=== PATIENT | female | born 1945 | race Caucasian/White ===

== ENCOUNTER → 2021-02-10 10:08 | Outpatient (CLI) | payer MEDICARE, OTHER, SELFPAY ==
[2021-02-10 12:04] LABS: COVID19 -Nasal RAPID Negative (Negative)
== END ==
PROVIDERS: PCP Nurse Practitioner; Visit Provider Physician Assistant
DX: Z01.812 Encounter for preprocedural laboratory examination (principal); Z20.822 Contact with and (suspected) exposure to COVID-19
CPT/HCPCS: 87635; C9803

== ENCOUNTER 2021-02-13 08:53 | Observation (INO) | payer MEDICARE, OTHER, SELFPAY ==
[2021-02-06 09:43] VITALS: BMI 30.9
[2021-02-12] VITALS (14 sets, daily range): BP systolic 74–132; BP diastolic 46–78; PULSE 69–88; RESP 13–17; TEMP 35.8–37.3; O2SAT 89–100; BMI 30.9
--- NOTE | 2021-02-12 | DI.RAD.S_ITS ---
PROCEDURE: XR PELVIS 1-2V INDICATIONS: POST OPERATIVE RIGHT HIP TECHNIQUE: 1 view of the lower pelvis acquired. COMPARISON: None. FINDINGS: Bones: Patient is status post right hip arthroplasty, with hardware components in expected positions. The hip joint appears congruent. The visualized bony structures appear intact. The left hip has mild degenerative changes. Soft tissues: Overlying postoperative changes are noted. No suspicious soft tissue densities. IMPRESSION: Postoperative changes of total right hip replacement without complication. Dictated by: Gene Nichols M.D. on 02/12/2021 at 11:00 Approved by: Gene Nichols M.D. on 02/12/2021 at 11:01
[2021-02-12] MEDS: ACETAMINOPHEN 325 MG TABLET 975 MG PO (07:29)
[2021-02-12] MEDS: GABAPENTIN 300 MG CAPSULE PO (07:29)
[2021-02-12] MEDS: CELECOXIB 200 MG CAPSULE 400 MG PO (07:29)
[2021-02-12] MEDS: LACTATED RINGERS 1,000 ML 42 ML IV ×2 (07:30→09:25)
--- NOTE | 2021-02-12 07:38 | DI.RAD.S_ITS ---
PROCEDURE: XR HIP W PEL IF DONE RT 2V INDICATIONS: interoperative right anterior hip TECHNIQUE: 2 view(s) of the hip acquired. COMPARISON: None. FINDINGS: Improved operative images of right hip arthroplasty is present. Arthroplasty is in good anatomic position. IMPRESSION: Intraoperative hip arthroplasty. Dictated by: Debora Gutierrez M.D. on 02/12/2021 at 10:20 Approved by: Debora Gutierrez M.D. on 02/12/2021 at 10:21
--- NOTE | 2021-02-12 08:08 | PM.PREOP ---
Pre-operative Note COVID-19 COVID-19 status: Negative Result date/Date tested (Pos, Neg/Pending): 02/10/21 Interval Note History & Physical reviewed/Exam performed by Physician: Yes Changes to H&P: No H&P completed within 30 days and has changed as indicated here:: Plan for R anterior JULIA
[2021-02-12] MEDS: CEFAZOLIN 1 GM VIAL 2 GM IV ×3 (08:19→23:55)
[2021-02-12] MEDS: TRANEXAMIC ACID 1,000 MG VIAL 2000 MG INJ ×2 (08:24→09:59)
--- NOTE | 2021-02-12 08:35 | SUR.OPER ---
Supine on padded [place] table with bilateral legs secured in padded positioning boots and suspended in positioning spars, bilateral feet/ankles wrapped in cast padding and coban wrap, operative leg in traction per surgeon. Head on one pillow. Arm on non-operative side secured on padded armboard <90 degrees abduction. Arm on operative side padded and resting across chest then secured with tape over sheet. Padded perineal post in place per surgeon.
[2021-02-12] MEDS: KETOROLAC 30 MG/ML VIAL IV (08:45)
[2021-02-12] MEDS: ROPIVACAINE 0.5% PF 5 MG/ML 20ML VIAL 10 ML INJ (08:47)
[2021-02-12] MEDS: MORPHINE 4 MG/ML INJ INJ (08:47)
[2021-02-12] MEDS: POVIDONE-IODINE SPONGE STICKS 1 APPLIC TOP (09:58)
--- NOTE | 2021-02-12 10:05 | P.OP_ITS ---
Operative Date/Time/Diagnoses Date of procedure: 02/12/21 Time of procedure: 10:05 Pre-op diagnosis: right hip OA Post-op diagnosis: same Procedure & Clinicians Procedure: right anterior JULIA Same procedure as scheduled: Yes Indications: right hip OA resistant to further conservative measures Surgeon: Juan Carlos Romano Financial Operations Consultant: Joni Melo Anesthesia Type: General and Spinal Operative Notes Findings: advacned OA of the right hip, large head neck junction osteophytes Closure Type: primary Specimen(s): none sent Prosthetic devices, grafts, tissues, transplants, or devices: Tam and Nephew 48 mm 3 hole R3 cup 48 mm x 32 mm neutral offset liner 1 X 25 mm screw 1 X 15 mm screw Size 6 standard offset anthology stem 32- 3 Oxinium femoral head Estimated Blood Loss (mL): 300 Procedure in detail: patient was met in the preop holding area where the site and side of surgery were marked by . Informed consent had been reviewed and signed in clinic was also reviewed the preoperative holding area all last minute questions were answered. Patient was then brought back in the operating room she received a spinal anesthetic she was induced under general anesthesia and transferred onto the [place] table. Bilateral feet were placed in well-padded [place] table boots. The right lower extremity was then prepped and draped in normal sterile fashion. A surgical time-out was performed verifying the site and side surgery as well as the name of the patient. A 7 cm long incision was made in the skin starting approximately 2 cm distal and 1 cm lateral to the ASIS aiming towards the fibular head 1 skin incision was made electrocautery dissection was carried down to the level of the tensor fascia. The tensor fascia was then incised using a new 10. Blade and a Allis clamp was placed on the medial leaflet. The tensor muscle itself was then reflected laterally in a Cobra was placed and over the superior aspect of the femoral neck. A Meyerding was then placed over the lateral aspect of the rectus femoris and retracted medially. This gave us good exposure to the descending branch of the femoral circumflex vessels. These were coagulated using electrocautery. A 2nd Cobra retractor was then placed into the inferior aspect of the femoral neck. A bent Hohmann was then placed over the anterior aspect of the acetabulum to give us good capsular exposure. Inverted T-shaped capsulotomy was then performed the superior and inferior leaflets were tagged with a FiberWire suture. Cobra retractors then placed intracapsularly this gave us good exposure the femoral neck. A reciprocating saw was then used to make a femoral neck cut based off of our preoperative template standing film length. Head was then removed using a corkscrew. The head fragment at this point and was able to be removed with a rongeur. Retractor was then replaced give us acetabular exposure. Pulvinar was then removed using electrocautery and suction. The remnant of the labrum which was quite large and calcified was removed using a Angie blade. I began reaming with a 42 mm Reamer to medialized and get through the sclerotic bone I then began upsizing by 2s once I got to 46 mm Reamer up brought in fluoroscopy to guide final reaming under fluoroscopic guidance. After 46 mm Reamer I then selected a 47 mm Reamer which had good fit and fill and touch reamed with a 48 mm Reamer a 48 mm 3 hole R3 cup was then malleted into place under fluoroscopic guidance using a straight impactor. Two screws were then drilled for 1.5 mm in length other 15 mm in length these were then placed. A neutral offset 40 mm x 32 mm polyethylene was then packed into place make sure the tabs were flush with the acetabular rim. Once this was completed turned our attention to the femoral side. A femoral elevator hook was placed into the posterior aspect of the femur the femur was then externally rotated to 120? extended to the floor and adducted. A bent Hohmann was placed over the superior aspect of the superior leaflet of the capsulotomy and the capsule was then further released off the inner shoulder greater trochanter with to produce a soft spot. A large single prong retractors then placed over the tip of the greater trochanter to give us exposure. A Damon retractors then placed over the medial calcar to give us exposure the femoral neck. A canal finer was then used followed by a chili pepper broach followed by size 1 broach upsizing by 1 until I got to size 4. This point trialed with a standard offset neck with 32+ 0 head and this was stable to maximal external rotation as well as external rotation 90? extension of floor. Fluoroscopic images were obtained which show that we are 1-2 mm long on the operative side however when took imaging of the stem within the canal the femur the was in varus and undersized. I then dislocated the hip removed the trial broach and began to lateralize my broaches as well as upsize. We ended with a size 6 broach. This corrected our varus malalignment and had better canal fit and fill. I then trialed with a 32- 3 head and standard offset neck. This had good stability and good leg lengths. The hip was then dislocated a final time. a size 6 anthology standard offset stem was then malleted into place and a 32- 3 Oxinium head was then malleted onto the trunnion the hip was reduced a final time Betadine solution was then placed in the wound final fluoroscopic images were obtained pulse lavage was then used to thoroughly irrigate the Betadine solution under the wound local anesthetic was infiltrated in the periarticular soft tissues. The capsulotomy was repaired using running Ethibond suture in the FiberWire tag sutures were removed. The tensor fascia was then closed using a running locking 1. Vicryl followed by 2 Vicryl in the subcutaneous layer followed by running 3-0 Stratafix in subcuticular layer Dermabond and Aquacel dressing. Complications: none Post-operative Condition: stable Disposition: PACU Plan for aftercare: WBAT RLE, 24 horus post-op abx, ASA 81mg BId for 6 weeks for DVT prophylaxis
[2021-02-12] MEDS: LACTATED RINGERS 1,000 ML 120 ML IV (10:55)
[2021-02-12] MEDS: LACTATED RINGERS 1,000 ML 100 ML IV (12:09)
[2021-02-12] MEDS: IBUPROFEN 400 MG TABLET PO ×3 (13:02→20:17)
--- NOTE | 2021-02-12 14:20 | PT.IIE ---
Current Diagnoses Unilateral primary osteoarthritis, right hip (02/12/21) Surgery Performed Operation Date: 02/12/21 07:45 Actual Procedures p Total Hip Arthroplasty/Anterior Approach(Right) - Juan Carlos Romano MD Surgical History (Last Updated 02/06/21 @ 10:16 by Adele Walden, RN) History of cardiac cath Hx laparoscopic cholecystectomy (09/1989) Hx of colonoscopy (2007) Hx of heart artery stent (1995) Hx of left breast biopsy (07/2018) Hx of tonsillectomy Medical History (Last Updated 02/06/21 @ 10:16 by Adele Walden RN) Anxiety Arthritis CAD (coronary artery disease) Edema Hearing impairment Heart murmur (09/16/20) HLD (hyperlipidemia) HTN (hypertension) Lower back pain Osteoarthritis Plantar fasciitis Sciatica Physical Therapy Inpatient Evaluation/Re-Eval M1 PT/OT-IP Prior Functional Status Start: 02/12/21 15:34 Freq: NEEDED Status: Active Protocol: Document 02/12/21 14:20 AB (Rec: 02/12/21 15:59 AB [email or web address]) Medical Review Prior Functional Status Medical History Reviewed Yes Communication able to make needs known Mobility and Gait pt stated that she is independent with all mobilities and ambulation without AD Social History Household Members none Living Arrangements House Number of Floors (Floors) One Floor Number of Stairs To Enter/Railing? ramp to enter Home Environment Standard Height Toilet,Walk in Shower,Built-In Shower Seat, Ramp Home Equipment Front Wheel Walker,Straight Cane Additional Social History Comment pt stated that her son and [id number] lives next door and can assist as needed but cannot stay with her M2 PT-IP Current Condition Start: 02/12/21 15:34 Freq: NEEDED Status: Active Protocol: Document 02/12/21 14:20 AB (Rec: 02/12/21 15:59 AB [email or web address]) Physical Therapy Current Condition Current Condition Evaluation Date 02/12/21 Treatment Diagnosis s/p R JULIA anterior approach; difficulty in walking Onset Date 02/12/21 Precautions Anterior Hip Precautions No Hip Extension,No Hip External Rotation Weight Bearing Status Weight Bearing Status Weight Bear as Tolerated Allowed Weight Bearing Amount (enter % RLE WBAT or #) (%) M3 PT-IP Subjective Start: 02/12/21 15:34 Freq: NEEDED Status: Active Protocol: Document 02/12/21 14:20 AB (Rec: 02/12/21 15:59 AB [id number]) Subjective Physical Therapy Visit Type Type Initial Evaluation Visit Start Time 14:20 Visit Stop Time 15:05 Total Visit Minutes 45 Number of WASTE DISPOSAL LEAKAGE TESTER Visits 0 Physical Therapy Visit Comments Patient Comments pt is agreeable to do PT Therapy Pain Assessment Pain Present Pain Present Denied Pain M4 PT-IP Mobility and Gait Start: 02/12/21 15:34 Freq: NEEDED Status: Active Protocol: Document 02/12/21 14:20 AB (Rec: 02/12/21 15:59 [email or web address]) PT-Bed Mobility Assessment Supine to Sit Supine to Sit Standby Assistance Sit to Supine Sit to Supine Standby Assistance PT-Transfer Assessment Sit to and From Stand Sit to and from Stand Moderate Assistance,Maximum Assistance,1 Person Assistance ,Use of Upper Extremities Equipment Transfer Assistive Device Gait Belt,Front Wheeled Walker Orthotic/Prosthetic Devices or Brace: No Transfers Transfer Destination Bed,Bedside Commode Transfer Technique Stand Step Pivot Transfer Ability Level of Assist Moderate Assistance,Maximum Assistance,1 Person Assistance ,Use of Upper Extremities Comments Mobility Comments pt educated regarding anterior hip precautions. BP in supine: 92/49. completed supine to sit SBA. pt was able to sit on EOB CGA. (+) nausea with emesis. BP checked in sittin/56. informed nurse regarding nausea and pt medicated. pt requesting to use the toilet. bedside commode positioned next to pt. completed sit to stand mod to max A and max cues with increase posterior trunk lean and cued to use FWW for support. completed step transfer to bedside commode mod to max A and max cues for steadiness. BP sitting on commode after transfers: 131/ 65. pt with difficulty following directions and has delayed motor control requiring assist to stabilize LE and balance. completed sit to stand from the bedside commode max A and cues and was able to take a few steps to get into the bed using fWW max A and cues. completed sit to supine SBA. assisted in positioning in bed. call light and table placed within reach. BP in supine after PT session: 118/63. pt has FWW in room but has rubber back legs and informed pt regarding safety and to get skids/tennis balls to be put on back legs and pt understood . Gait Assessment Gait Gait Assistance Required: Maximum Assistance,1 Person Assist Distance (Feet) 2 Able to Maintain Weight Bearing Status Yes During Gait Assistive Devices Assistive Device Gait Belt,Front Wheeled Walker Orthotic/Prosthetic Devices or Brace: No Gait Deviations General Gait Pattern Antalgic,Decreased Stride Length,Decreased Feet Clearance Factors Limiting Gait Function Factors Limiting Gait Function Decreased Activity Tolerance, Decreased Strength,Difficulty Following Directions, Incoordination,Limited Range of Motion,Poor Balance,Poor Safety Awareness Comments Gait Comments pls refer to mobility section for details PT-Balance Assessment Sitting Balance and Reactions Static Sitting Balance Ability Good Dynamic Sitting Balance Ability Good Standing Balance and Reactions Static Standing Balance Ability Poor Dynamic Standing Balance Ability Poor Device Used FWW M5 PT-IP Objective Assessments Start: 02/12/21 15:34 Freq: NEEDED Status: Active Protocol: Document 02/12/21 14:20 AB (Rec: 02/12/21 15:59 [email or web address]) Orientation Orientation/Cognition Level of Alertness Alert Orientation Name,Place,Situation Language Function Ability Hard of Hearing Safety Awareness Decreased Safety Awareness Memory Description Short Term Impaired Gross Range of Motion Lower Extremity ROM Assessment Within Functional Limits Strength Lower Extremity Strength Assessment Right Impaired Hip 3+/5 Knee 4-/5 Coordination Assessment Gross Coordination Gross Coordination WNL Sensation Assessment Comments Sensation Comments chronic LE numbness due to back issue per pt Muscle Tone Muscle Tone WNL Yes M6 PT-IP Treatment Start: 02/12/21 15:34 Freq: NEEDED Status: Active Protocol: Document 02/12/21 14:20 AB (Rec: 02/12/21 15:59 [email or web address]) Physical Therapy Treatment Education Education Provided Precautions,Weight Bearing Status,Post-Op Packet,Safety M7 PT-IP Assessment and Plan Start: 02/12/21 15:34 Freq: NEEDED Status: Active Protocol: Document 02/12/21 14:20 AB (Rec: 02/12/21 15:59 [email or web address]) PT Summary Assessment and Plan Potential Rehabilitation Potential Good Status of Condition at Evaluation Evolving Summary Impairments Pain,ROM,Strength,Balance, Coordination,Sensation,Tone, Cognition,Bed Mobility, Transfers,Gait,Activity Tolerance Assessment Summary pt s/p R JULIA anterior approach POD 0. Pt requiring mod to max A with mobility using FWW and unable to tolerate much activity with c/o nausea and ( +) emesis. pt still has decrease motor control on trunk/LE requiring max A for mobility and safety. Pt just had surgery earlier today and will likely progress during hospital stay. will continue to assess progress and will conduct caregiver training when appropriate. Called pt's son per pt's permission to contact son to schedule training but call was unsuccessful. Goals Bed Mobility Goal Independent Transfer Goal Standby Assistance,Front Wheeled Walker Gait Goal Standby Assistance,Front Wheel Walker Gait Distance 150 Days to Meet Goals 5 Frequency of Treatment Frequency Of Treatment Twice a Day Treatment Plan Physical Therapy Treatment Plan Bed Mobility Training,Transfer Training,Gait Training, Therapeutic Exercise,Balance Retraining,Post Op Education, Discharge Planning,Hot or Cold Pack,Neuromuscular Re-ed, Coordination Retraining,Manual Therapy Precautions Anterior Hip Precautions No Hip Extension,No Hip External Rotation Recommendations To Nursing Amount of Assist Needed 2 Person Assist Discharge Recommendations PT Discharge Recommendations Home with 29/03 Assist Available,Home Health Transportation Needs at Discharge Private Vehicle
[2021-02-12] MEDS: ONDANSETRON 4 MG/2 ML INJ IV (14:44)
[2021-02-12] MEDS: ACETAMINOPHEN 325 MG TABLET 650 MG PO ×2 (15:04→20:18)
[2021-02-12] MEDS: ATORVASTATIN 20 MG TABLET 40 MG PO (16:10)
--- NOTE | 2021-02-12 16:54 | PT-IP ANOTE ---
pt's son called back and caregiver training set up tomorrow 02/13 at 10 am. informed pt and is aware of caregiver training as well.
[2021-02-12] MEDS: ASPIRIN EC 81 MG TABLET PO (20:17)
[2021-02-12] MEDS: DOCUSATE 100 MG CAPSULE PO (20:17)
[2021-02-13] MEDS: ONDANSETRON 4 MG ODT PO (00:05)
[2021-02-13 00:23] VITALS: O2SAT 86
[2021-02-13 00:49] VITALS: O2SAT 98
[2021-02-13] MEDS: IBUPROFEN 400 MG TABLET PO ×3 (00:49→09:00)
--- NOTE | 2021-02-13 01:36 | PC.NURSE ---
patient is alert and oriented. Breath sounds CTA but RA sat only 86% so placed on oxygen at 2L/min and sat improved to 98% so decreased to 1L/min for overnight. HRR. Complained of slight nausea which she states she has had most of the day; medicated with Zofran ODT. BT hypoactive; denies flatus. Has voided only 135cc since return from surgery but bladder scan at shift change only 318cc and patient denies any bladder discomfort. Is able to move herself in bed. Has been out of bed with walker and 1 assist but is weak in her right leg. Reports chronic numbness in right LE and left heel which is unchanged. Able to lift right leg off bed but has limited ROM. Aquacel dressing intact to right anterior hip with small spot of shadow drainage. Denies pain. Wearing bilateral calf SCD's. Fall risk score is moderate; bed alarm is activated.
[2021-02-13 03:43] VITALS: BP 103/59; PULSE 92; RESP 18; TEMP 36.1; O2SAT 97
[2021-02-13 05:45] VITALS: O2SAT 97
[2021-02-13 05:54] LABS: Hematocrit 27.7 % (36-46); Hemoglobin 9.4 g/dL (12.0-16.0)
--- NOTE | 2021-02-13 07:27 | P.PN_ITS ---
Subjective Subjective Date Patient Seen: 02/13/21 Time Patient Seen: 07:27 Interval history: Patient states she is doing well and is in mild discomfort at rest. At this time she rates her pain a 3/10 in intensity. She denies fever, chills, nausea, chest pain, shortness of breath, nausea, or urinary retention. She reports good sensation throughout her bilateral lower extremities. Exam Vital Signs (past 8 hours): - 02/12/21 23:52 02/13/21 00:23 02/13/21 00:49 Temperature 97.0 F L Pulse Rate 88 Respiratory Rate 16 Blood Pressure 112/49 L Pulse Oximetry 89 L 86 L 98 02/13/21 03:43 02/13/21 05:45 Temperature 97.0 F L Pulse Rate 92 H Respiratory Rate 18 Blood Pressure 103/59 L Pulse Oximetry 97 97 Oxygen Delivery Method Nasal Cannula Oxygen Flow Rate 0 Narrative Exam Narrative: Pleasant 75-year-old female postop day 1 status post right ante rior total hip arthroplasty. Patient is resting comfortably in bed, is in no acute distress, is alert and oriented x3. Skin is warm and dry, and the skin surrounding the incision site is free of erythema, warmth, induration, or discharge. Aquacel dressing over the incision site is clean, dry, and intact. Good sensation appreciated throughout the bilateral lower extremities to light touch. Hip flexion performed bilaterally, left greater than right. Ankle dorsiflexion, plantar flexion, eversion, inversion performed bilaterally without difficulty or discomfort. Calves are soft and nontender, negative Homans sign. DP pulses palpated bilaterally. No signs of DVT appreciated. Const General: cooperative, healthy appearing and comfortable Resp Effort & Inspection: normal respiratory effort and able to speak in complete sentences Skin General: no rashes or lesions noted Objective Labs Result Diagrams: 02/13/21 05:30 Labs: Laboratory Results - last 24 hr 02/13/21 05:30 Hgb 9.4 L Hct 27.7 L PFSH Medical History Anxiety Arthritis CAD (coronary artery disease) Edema Hearing impairment Heart murmur (09/16/20) HLD (hyperlipidemia) HTN (hypertension) Lower back pain Osteoarthritis Plantar fasciitis Sciatica Surgical History History of cardiac cath Hx laparoscopic cholecystectomy (09/1989) Hx of colonoscopy (2007) Hx of heart artery stent (1995) Hx of left breast biopsy (07/2018) Hx of tonsillectomy Social History household members: none Smoking Status: Never smoker alcohol intake: current Assessment & Plan Post-op Postoperative Procedures: Procedures Operation Date: 02/12/21 07:45 Actual Procedures Side Surgeon p Total Hip Arthroplasty/Anterior Approach Right Juan Carlos Romano MD Postoperative day: 1 Postoperative status: doing well Postoperative plan: ambulate Postoperative plan narrative: Patient is to continue working on ambulation with the assistance of a front wheeled walker with physical therapy. Current pain management regimen is to be continued as it is adequately controlled the patient's pain level at this time. Aspirin 81 mg twice daily is to be continued for DVT prophylaxis. Pending successful work with PT plan for discharge home likely today or tomorrow. Time Spent With Patient Time with patient: less than 15 minutes Quality VTE Deep Vein Thrombosis/Pulmonary Embolism Present on Admission: No
[2021-02-13 08:23] VITALS: BP 111/54; PULSE 83; RESP 14; TEMP 36.4; O2SAT 95
[2021-02-13] MEDS: DOCUSATE 100 MG CAPSULE PO (09:00)
[2021-02-13] MEDS: ASPIRIN EC 81 MG TABLET PO (09:00)
[2021-02-13] MEDS: LOSARTAN 25 MG TABLET PO (09:01)
[2021-02-13] MEDS: ACETAMINOPHEN 325 MG TABLET 650 MG PO (09:01)
[2021-02-13] MEDS: atenoloL 50 MG TABLET PO (09:01)
[2021-02-13] MEDS: SODIUM CHLORIDE 0.9% FLUSH 10 ML IV (09:08)
--- NOTE | 2021-02-13 10:21 | PM.DS.1 ---
History of Present Illness History of Present Illness Date Patient Seen: 02/13/21 Time Patient Seen: 10:21 Chief complaint: OPB Narrative: Referred to previous HPI. Discharge Providers Provider Date of admission: 02/13/21 08:53 Discharge Date: 02/13/21 Primary care physician: VENKAT Mcgill Consults: 02/12/21 07:37 Consult to Anesthesiology Routine Comment: Consulting Provider: Anesthesiologist Reason for consultation: Regional block for post operative pain control 02/12/21 11:32 Consult to Discharge Planning Routine Comment: Consult to Physical Therapy Evaluate & Treat Comment: Physician Instructions: post op JULIA protocol Consult to Respiratory Therapy Evaluate & Treat Comment: Physician Instructions: Evaluate and treat Discharge provider: Avelino Triplett PA-C Summary Hospital Course Discharge Diagnosis: Right hip osteoarthritis Right anterior total hip arthroplasty Hospital Course: Patient was admitted to the hospital following the above-listed procedure for the above-listed diagnosis. Following the procedure the patient has been convalescing appropriately in her pain has been managed with her current pain management regimen. Throughout her course of time in the hospital the patient has denied fever, chills, nausea, chest pain, shortness of breath, or urinary retention. Patient has successfully worked on ambulation with the assistance of a front wheeled walker with physical therapy. Dressing has remained intact over the incision site following the procedure. Patient has remained full weight-bearing as tolerated with anterior hip precautions. Aspirin 81 mg twice daily has been administered for DVT prophylaxis along with the assistance of sequential compression devices. Status at Discharge Cognitive/behavioral status at discharge: oriented Functional status at discharge: uses cane/walker Overall status at discharge: patient is progressing back to baseline Exam Vital Signs (past 8 hours): - 02/13/21 03:43 02/13/21 05:45 02/13/21 08:23 Temperature 97.0 F L 97.6 F Pulse Rate 92 H 83 Respiratory Rate 18 14 Blood Pressure 103/59 L 111/54 L Pulse Oximetry 97 97 95 Oxygen Delivery Method Nasal Cannula Oxygen Flow Rate 0 Narrative Exam Narrative: Pleasant 75-year-old female postop day 1 status post right anterior total hip arthroplasty. Patient is resting comfortably in bed, is in no acute distress, is alert and oriented x3. Skin is warm and dry, and the skin surrounding the incision site is free of erythema, warmth, induration, or discharge. Aquacel dressing over the incision site is clean, dry, and intact. Good sensation appreciated throughout the bilateral lower extremities to light touch. Hip flexion performed bilaterally, left greater than right. Ankle dorsiflexion, plantar flexion, eversion, inversion performed bilaterally without difficulty or discomfort. Calves are soft and nontender, negative Homans sign. DP pulses palpated bilaterally. No signs of DVT appreciated. Const General: cooperative, healthy appearing and comfortable Resp Effort & Inspection: normal respiratory effort and able to speak in complete sentences Skin General: no rashes or lesions noted Objective Labs Result Diagrams: 02/13/21 05:30 Labs: Laboratory Results - last 24 hr 02/13/21 05:30 Hgb 9.4 L Hct 27.7 L PFSH Medical History Anxiety Arthritis CAD (coronary artery disease) Edema Hearing impairment Heart murmur (09/16/20) HLD (hyperlipidemia) HTN (hypertension) Lower back pain Osteoarthritis Plantar fasciitis Sciatica Surgical History History of cardiac cath Hx laparoscopic cholecystectomy (09/1989) Hx of colonoscopy (2007) Hx of heart artery stent (1995) Hx of left breast biopsy (07/2018) Hx of tonsillectomy Social History household members: none Smoking Status: Never smoker alcohol intake: current Discharge Assessment & Plan Assessment and Plan Assessment: Patient is doing well and is stable. Plan of Treatment: Patient is to continue physical therapy in the outpatient setting following discharge from hospital. First postoperative visit in clinic is scheduled for 2 weeks following discharge. Patient is to remain weight-bearing as tolerated with the assistance of a front wheeled walker with anterior hip precautions. Current pain management regimen is to be continued as it is adequately controlled the patient's pain level. Aspirin 81 mg twice daily is to be continued for 6 weeks for DVT prophylaxis. Aquacel dressing over the incision site is to remain intact for 2 weeks until 1st postoperative appointment in clinic. Contact clinic if the dressing becomes damaged or soiled. Avoid placing topical ointments over the incision site or soaking the incision site. Patient is to contact the clinic with any concerns or questions. Discharge Plan Discharge Plan Patient Disposition: Home Provider Discharge Comment: Patient cleared for discharge pending PT clearance. Discharge orders & Medications Prescriptions: New acetaminophen 325 mg Tablet 650 mg PO TID Qty: 90 RF: 0 aspirin 81 mg Tablet,Delayed Release (Dr/Ec) 81 mg PO BID Qty: 90 RF: 0 ibuprofen 400 mg Tablet 400 mg PO Q4HR Qty: 90 RF: 0 oxycodone 5 mg Tablet 10 mg PO Q3HR PRN (Reason: Pain, Severe (7-10)) Qty: 42 RF: 0 Continued atorvastatin 40 mg Tablet 40 mg PO QPM RF: 0 losartan 25 mg Tablet 25 mg PO DAILY RF: 0 ibuprofen 200 mg Tablet 600 mg PO BID RF: 0 atenolol 50 mg Tablet 50 mg PO DAILY RF: 0 Follow up/Referrals: Ana Quinteros ARNP [Primary Care Provider] - Diet/Activity/Treatments Diet: Diet as Tolerated Activity: Weight-bearing as tolerated with the assistance of a front wheeled walker. Anterior hip precautions. Skin/Wound/Dressing Care Report to your healthcare provider any signs of infection, such as:: chills, fever, night sweats, increased pain, unusual drainage and unusual redness Dressing: Aquacel dressing over the incision site is to remain intact for 2 weeks. Contact the clinic if the dressing becomes damaged or soiled. Other wound treatment: Avoid placing topical ointments over the incision site. Avoid soaking the incision site. Visit Report/Discharge Packet Instructions: DI for Hip Replacement, DI for Constipation, How to Prevent Falls, DI for Prescription Opioid Use Stand Alone Forms: Surgery Discharge Discharge Data Primary Care Provider: Ana Quinteros Attending Provider: Juan Carlos Romano VTE Deep Vein Thrombosis/Pulmonary Embolism Present on Admission: No
--- NOTE | 2021-02-13 11:10 | PT.IPTN ---
Current Diagnoses Unilateral primary osteoarthritis, right hip (02/13/21) Surgery Performed Operation Date: 02/12/21 07:45 Actual Procedures p Total Hip Arthroplasty/Anterior Approach(Right) - Juan Carlos Romano MD Physical Therapy Treatment Note M2 PT-IP Current Condition Start: 02/12/21 15:34 Freq: NEEDED Status: Active Protocol: Document 02/12/21 14:20 AB (Rec: 02/12/21 15:59 AB [id number]) Physical Therapy Current Condition Current Condition Evaluation Date 02/12/21 Treatment Diagnosis s/p R JULIA anterior approach; difficulty in walking Onset Date 02/12/21 Precautions Anterior Hip Precautions No Hip Extension,No Hip External Rotation Weight Bearing Status Weight Bearing Status Weight Bear as Tolerated Allowed Weight Bearing Amount (enter % RLE WBAT or #) (%) M3 PT-IP Subjective Start: 02/12/21 15:34 Freq: NEEDED Status: Active Protocol: Document 02/13/21 10:32 CLB (Rec: 02/13/21 12:02 CLB [id number]) Subjective Physical Therapy Visit Type Type Treatment Note Visit Start Time 10:32 Visit Stop Time 11:10 Total Visit Minutes 38 Notes Son present for CG training. Number of NEWS CONTENT SPECIALIST Visits 1 Physical Therapy Visit Comments Patient Comments pt is agreeable to do PT Therapy Pain Assessment Pain Present Pain Present Pain Reported Location right thigh/buttock Intensity 4 Scale Used Numeric (0 - 10) Description Aching Pain Management Techniques Modification of Treatment, Timing of Activity with Medications M4 PT-IP Mobility and Gait Start: 02/12/21 15:34 Freq: NEEDED Status: Active Protocol: Document 02/13/21 10:32 CLB (Rec: 02/13/21 12:02 CLB [id number]) PT-Bed Mobility Assessment Supine to Sit Supine to Sit Standby Assistance Sit to Supine Sit to Supine Standby Assistance PT-Transfer Assessment Sit to and From Stand Sit to and from Stand Standby Assistance,Use of Upper Extremities Equipment Transfer Assistive Device Gait Belt,Front Wheeled Walker Orthotic/Prosthetic Devices or Brace: No Transfers Transfer Destination Bed,Chair Transfer Technique Stand Step Pivot Transfer Ability Level of Assist Standby Assistance,Use of Upper Extremities Comments Mobility Comments Pt stood from chair ambulating in woo ~150ft w/FWW. Pt returned to room performing bed mobility in and out of bed . Discussed with pt and son ther ex and getting in and out of vehicle. Pt recalled 2/2 anterior hip precautions with good demonstration during mobility. Pt left in reclined chair, son present and RN informed of pt progress. Gait Assessment Gait Gait Assistance Required: Standby Assistance,1 Person Assist Distance (Feet) 150 Able to Maintain Weight Bearing Status Yes During Gait Assistive Devices Assistive Device Gait Belt,Front Wheeled Walker Orthotic/Prosthetic Devices or Brace: No Gait Deviations General Gait Pattern Antalgic,Decreased Stride Length,Decreased Feet Clearance Factors Limiting Gait Function Factors Limiting Gait Function Decreased Activity Tolerance, Decreased Strength,Difficulty Following Directions, Incoordination,Limited Range of Motion,Poor Balance Comments Gait Comments Pt with increased pain in sacral region with gait. Stair Climbing Assessment Comments Stair Climbing Comments ramp to enter home M5 PT-IP Objective Assessments Start: 02/12/21 15:34 Freq: NEEDED Status: Active Protocol: Document 02/12/21 14:20 AB (Rec: 02/12/21 15:59 AB [id number]) Orientation Orientation/Cognition Level of Alertness Alert Orientation Name,Place,Situation Language Function Ability Hard of Hearing Safety Awareness Decreased Safety Awareness Memory Description Short Term Impaired Gross Range of Motion Lower Extremity ROM Assessment Within Functional Limits Strength Lower Extremity Strength Assessment Right Impaired Hip 3+/5 Knee 4-/5 Coordination Assessment Gross Coordination Gross Coordination WNL Sensation Assessment Comments Sensation Comments chronic LE numbness due to back issue per pt Muscle Tone Muscle Tone WNL Yes M6 PT-IP Treatment Start: 02/12/21 15:34 Freq: NEEDED Status: Active Protocol: Document 02/13/21 10:32 CLB (Rec: 02/13/21 12:02 CLB [id number]) Physical Therapy Treatment Education Education Provided Precautions,Weight Bearing Status,Post-Op Packet,Safety M7 PT-IP Assessment and Plan Start: 02/12/21 15:34 Freq: NEEDED Status: Active Protocol: Document 02/13/21 10:32 CLB (Rec: 02/13/21 12:02 CLB [id number]) PT Summary Assessment and Plan Potential Rehabilitation Potential Good Status of Condition at Evaluation Evolving Summary Impairments Pain,ROM,Strength,Balance, Coordination,Sensation,Tone, Cognition,Bed Mobility, Transfers,Gait,Activity Tolerance Progress Towards Goals Progressing Toward Goals Assessment Summary Pt son present for CG training . Pt recalls 2/2 anterior hip precautions with good demonstration during mobility, pt requiring SBA for all bed mobility, transfers and gait. Pt son able to assist pt at home. Goals Bed Mobility Goal Independent Transfer Goal Standby Assistance,Front Wheeled Walker Gait Goal Standby Assistance,Front Wheel Walker Gait Distance 150 Days to Meet Goals 5 Frequency of Treatment Frequency Of Treatment Twice a Day Treatment Plan Physical Therapy Treatment Plan Bed Mobility Training,Transfer Training,Gait Training, Therapeutic Exercise,Balance Retraining,Post Op Education, Discharge Planning,Hot or Cold Pack,Neuromuscular Re-ed, Coordination Retraining,Manual Therapy Precautions Anterior Hip Precautions No Hip Extension,No Hip External Rotation Recommendations To Nursing Amount of Assist Needed Standby Assistance Discharge Recommendations PT Discharge Recommendations Home with Assistance,Home Health Transportation Needs at Discharge Private Vehicle
--- NOTE | 2021-02-13 11:57 | CM.IDA ---
Initial DCP Assessment Note Pt is a 75 yo female, resident of [place], now POD#1 from Rt hip surgery w/ Dr Romano PCP: Ana Quinteros Payer: [employer] Reviewed chart, pt discussed in multidisciplinary rounds this morning. Therapy has cleared pt for return home w/family to assist and pt has planned for home, DC order from Ortho has already been initiated this morning. Cg training scheduled w/son today. Met w/patient to review DCP; patient eager to return home, son has taken time off work to assist. Patient reuests HH, choice list reviewed w/no preference. HH referral e faxed to [facility] per calendar rotation. Requested RN/PT/OT/OPEN DEVELOPER OPERATOR per patient Plan: DC home w/family expected this afternoon, w/[facility] to follow STEPHANIE [place] Discharge Planning/Care Management CM Discharge Assessment Start: 02/13/21 11:54 Freq: Status: Active Protocol: Document 02/13/21 11:54 LEIGHANN (Rec: 02/13/21 11:57 [id number]) Discharge Planning Assessment Assigned Pants Presser STEPHANIE Sher DPOA/Assigned Designee Name lindsay Duarte Contact Information [phone] Advance Directives? Yes Advance Directives on File Yes History Provided By Patient Prior Living Arrangements House Comment Lives behind son and DIL's house Household Members none Independent with ADL's Yes Is patient alert and oriented? Yes Patient/Family Preference Home with Home Health Barriers to Discharge No Comment Home w/son, who has taken 5 days off work to assist once patient returns home Discharge Plan Home with Home Health Transportation Arrangement Family Referrals Initiated Home Health Additional Comment [facility] per calendar rotation, no agency preference from patient Medicare Choice List Provided Yes SNF/HH Preference None Whiteboard Updated in Patient Room with Yes name and ext. # of Pants Presser
--- NOTE | 2021-02-13 14:10 | PC.NURSE ---
Feels ready to d/c home. Seen by PT and healthcare specialist training was given, Son and patient given PT final instructions. Vds w/out diff. Tolerates diet w/out problems. Pain has been controlled by tyelnol and ibuprofen. Has not taken oxy yet and doesn't feels she needs to at this time. Son given rx and he filled them. Reviewed d/c packet. Questions answered. Pt d/c to home via auto w/son.
--- NOTE | 2021-02-19 08:39 | CM.DPNOTE ---
Addendum entered by Jeri Street 02/19/21 10:32: Misspelled name: Sarina ortega November. Jeri Street CM Asst. Original Note: Late entry: November from [facility] called and said they have tried to reach out to pt. a couple of times with no response. She called today, 02/19/21 and said pt. told her she is using [facility]. [facility] will cancel this order. Jeri Street CM Asst.
== END 2021-02-13 12:30 | disposition home or self-care (01) ==
LOC: OR 09:13 → AC 09:14
PROVIDERS: Admitting Provider Orthopaedic Surgery Adult Reconstructive Orthopaedic Surgery; PCP Nurse Practitioner; Referring Provider Orthopaedic Surgery; Visit Provider Orthopaedic Surgery Adult Reconstructive Orthopaedic Surgery
PROC: (CPT 27130; principal; 2021-02-12 07:45)
DX: M16.11 Unilateral primary osteoarthritis, right hip (principal); E66.9 Obesity, unspecified; I25.10 Atherosclerotic heart disease of native coronary artery without angina pectoris; I10 Essential (primary) hypertension; Z68.30 Body mass index [BMI] 30.0-30.9, adult
CPT/HCPCS: 27130; 36415; 72170; 73502; 85014; 85018; 97116; 97162; 97530; C1776; G0378; J0690; J1100; J1885; J2270; J2274; J2405; J2704